=== PATIENT | male | born 1985 | race Caucasian/White ===

== ENCOUNTER 2025-03-13 04:29 | Observation (INO) | payer MEDICAID, SELFPAY ==
[2025-03-13] VITALS (10 sets, daily range): BP systolic 103–143; BP diastolic 76–98; PULSE 90–107; RESP 15–19; TEMP 36.3–37.2; O2SAT 95–100; BMI 28.1; BMI 29.5
--- NOTE | 2025-03-13 04:43 | XR_ITS ---
Examination: CT brain head without contrast. 2-D sagittal coronal reconstructions Date and time of exam:March 13, 2025 0604 hours INDICATIONS: Altered mental status today CTDI: vol (mGy):54 DLP: (mGycm):1084 Technique: Multiple CT axial sections of the brain have been obtained, 5 mm slice thickness. Contrast has not been administered. 2-D sagittal, coronal reconstructions have been obtained Low dose protocols were performed. One or more of the following dose reduction techniques were used; automated exposure control, adjustment of the mA and/or KV according to patient size, use of iterative reconstruction technique. Findings: No significant ventricular enlargement. Intra-axial or extra-axial hemorrhage density is not seen. No mass effect or midline shift Basal cisterns are not remarkable. Fourth ventricle is midline. Cranial vault intact. Impression: Negative for acute hemorrhage, mass effect or midline shift Advise clinical correlation and follow up accordingly
--- NOTE | 2025-03-13 04:43 | XR_ITS ---
Examination: AP chest single view TECHNIQUE: AP portable semiupright chest single view Date and time: March 13, 2025 0459 hours INDICATIONS: Shortness of breath weakness today FINDINGS: Normal heart size Lungs are clear. The osseous structures are intact IMPRESSION: No active disease
--- NOTE | 2025-03-13 04:52 | EDNOTE_ITS ---
Nausea/Vomit./Diarrhea-RME/HPI General Chief complaint: Nausea/Vomiting/Diarrhea Stated complaint: ATE MUSHROOMS Time Seen by Provider: 03/13/25 04:43 Arrival date/time: 03/13/25 04:29 Limitations: no limitations RME / HPI RME / HPI Narrative: DR. FLORIN FISCHER ED EVALUATION: 39 y/o homeless male presents to ED c/o abdominal cramping, nausea, vomiting, and diarrhea s/p eating an unknown [place] 12 [place]. Patient believed the mushroom was edible. He is unsure if he vomited the entire mushroom out. He reports feeling drowsy and experiencing visual hallucinations. he attempted to sleep it off, but was unsuccessful. Denies chest pain, shortness of breath, fever, and dysuria. Also denies any medical history, including alcohol and recreational drug use, but does admit to smoking tobacco. No other concerns or complaints expressed at this time Related Data Previous Rx's ?Medication ?Instructions ?Recorded Hydrocodone/Acetaminophen * (NORCO 1 - 2 tab PO Q4H VA N PAIN #15 tabs 02/01/17 5/325 *) Allergies Allergy/AdvReac Type Severity Reaction Status Date / Time NKA* Allergy Uncoded 03/13/25 04:51 Review of Systems Review of Systems Systems Reviewed: All systems reviewed, normal except as documented Past Medical History Social History SMOKING STATUS: Current every day smoker HOUSING: Homeless ED Exam Narrative Physical exam: GEN. APPEARANCE: The patient is alert awake oriented X-3 in no distress, lying down comfortably, does not look ill/toxic. Patient has poor eye contact. Patient is cooperative. VITALS: All vitals were reviewed and the pulse ox is % on room air which is normal according to my interpretation. HEENT: Normocephalic, atraumatic. Pupils are equal and reactive. Oral mucosa is moist. Patent Nares NECK: Supple, nontender, no thyromegaly, no meningismus, no JVD CHEST: Symmetrical, atraumatic, and with equal expansion , Nontender on palpation no deformity and no crepitus. CARDIOVASCULAR: Heart regular rhythm no murmur or gallop rub or extra beats. LUNGS: Clear to auscultation bilaterally with symmetrical chest rise. No laboring tachypnea or wheezing. No intercostal subcostal retraction. No rales and no rhonchi. ABDOMEN: Soft, flat, nontender to palpation, no guarding or rebound tenderness. There are no abnormal masses palpated. Active and normal bowel sounds. EXTREMITIES: Nontender. No edema. No cyanosis. Patient is able to move all 4 extremities well, with full ROM and good CSM. SKIN: Warm and dry, no jaundice or rashes noted. NEURO: Patient is ALEXIS x 4, Cranial nerves II through XII grossly intact. There is no focal neurologic deficits noted. GCS is 15, PNS and INTEGRITY ASSESSOR appear grossly intact. PSYCHIATRIC: Guarded General Limitations: Present no limitations Course Course Course Narrative: CXR is ordered for determining the etiology of shortness of breath. Quality Measures none Orders Category Date Time Status Insert IV NOW Care 03/13/25 04:[address] head/brain wo con Stat Exams 03/13/25 04:43 Taken CXR [XR chest 1V] Stat Exams 03/13/25 04:43 Taken Acetaminophen Stat Lab 03/13/25 05:26 Completed Ammonia Stat Lab 03/13/25 05:26 Completed CBC Stat Lab 03/13/25 05:26 Completed CMP [Comprehensive Metabolic Panel] Stat Lab 03/13/25 05:26 Completed INR [Prothrombin Time with INR] Stat Lab 03/13/25 05:26 Completed Salicylate Stat Lab 03/13/25 05:26 Completed T4 (Thyroxine) Stat Lab 03/13/25 05:26 Completed Thyroid Stimulating Hormone Stat Lab 03/13/25 05:26 Completed UA, C/S IF [Urinalysis, C/S if Indicated] Stat Lab 03/13/25 04:43 Ordered Vital Signs Vital signs: Vital Signs Temperature 97.3 F 03/13/25 04:33 Pulse Rate 99 03/13/25 04:33 Respiratory Rate 18 03/13/25 04:33 Blood Pressure 113/81 03/13/25 04:33 Pulse Oximetry (%) 99 03/13/25 04:33 Oxygen Delivery Method Room Air 03/13/25 04:33 Nausea/Vomiting/Diarrhea MDM Narrative MDM Narrative:: Scribe Attestation: Sissy Taylor, am scribing for and in the presence of Dr. Merrill. Provider Notation: Although this document has been carefully reviewed, there may still be some phonetic and other typographical errors.? These errors are purely grammatical due to imperfections in the software program and should not be construed in any way to? compromise the substance of the patient's medical care during this visit. Pending CT, CXR, and labs. Patient signed-out to Dr. Johnson at 6 AM. Patient data External records reviewed:: [facility] previous records (No prior ED recrds available for review.) and EMS form Clinical information provided by:: patient and EMS Social determinants that could affect healthcare access:: housing (Homeless) Patient has the following chronic illnesses:: None reported How is presenting disease/condition affected by chronic disease/condition?: no chronic disease Evaluation data The following diagnostics were reviewed and interpreted by me:: lab results and radiology exam(s) Lab and/or radiology exams considered but not ordered:: None Interpretation Summary: Pending CT, CXR, and Labs. Medications / Prescriptions Medications / Prescriptions considered but not ordered:: None Medication administrations:: See above if any. Consultations Consultation(s) initiated? (list below): No Diagnosis Nausea Differential Diagnosis: food poisoning, gastroenteritis, drug-induced nausea and vomiting, dehydration and other (Mushroom poisoning) Most likely diagnosis given after review of the tests above:: Ingestion of unknown substance Admission Indicated Admission indicated?: not indicated Explain why admission is indicated or not indicated:: Pending labs and official radiology report. Admission Request Was there a request for admission?: No Disposition Plan Disposition Plan: other (specify) (Patient signed-out to Dr. Johnson at 6 AM.) Discharge Plan Prescriptions/Referrals Prescriptions/Med Rec: No Action Hydrocodone/Acetaminophen * (NORCO 5/325 *) 1 TAB tablet 1 - 2 tab PO Q4H PRN (Reason: PAIN) Qty: 15 0RF Rx Instructions: FOR PAIN Referrals: No Primary/Family,Physician [Primary Care Provider] - In 1 week Problem List Clinical Impression: Acute confusion Patient/Caregiver Discharge Instructions Print Language: Serbian
[2025-03-13 05:35] LABS: Basophils # (Auto) 0.1 Thou/mm3 (0.0-0.2); Basophils % (Auto) 0 % (0-2.5); Eosinophils # (Auto) 0.1 Thou/mm3 (0.0-0.5); Eosinophils % (Auto) 1 % (0-10); Hematocrit 47.4 % (41.0-53.0); Hemoglobin 15.9 g/dL (13.5-16.0); Immature Granulocytes % (Auto) 1 % (0-0); Immature Granulocytes Auto 0.09 Thou/mm3 (0.00-0.00); Lymphocytes # (Auto) 0.3 Thou/mm3 (1.0-4.8); Lymphocytes % (Auto) 2 % (10-50); Mean Corpuscular HGB Conc 33.5 g/dl (31.0-37.0); Mean Corpuscular Volume 84 fL (80-100); Monocytes # (Auto) 0.5 Thou/mm3 (0.0-0.8); Monocytes % (Auto) 4 % (0-12); Neutrophils # (Auto) 12.1 Thou/mm3 (1.8-7.7); Neutrophils % (Auto) 92 % (37-80); Nucleated Red Blood Cell % 0 /100 WBC (0); Platelet Count 231 Thou/mm3 (140-440); Red Blood Count 5.68 Miln/mm3 (4.50-5.90); White Blood Count 13.1 Thou/mm3 (3.8-10.6)
[2025-03-13 05:48] LABS: Prothrombin Time 10.6 Seconds (9.0-12.2)
[2025-03-13 05:58] LABS: Ammonia 46 uMol/L (11-32)
[2025-03-13 06:07] LABS: Acetaminophen < 2.0 mcg/mL (10.0-20.0); Alanine Aminotransferase 68 U/L (10-49); Albumin, Serum 4.5 gm/dL (3.5-5.0); Albumin/Globulin Ratio 1.5 (1.2-2.2); Alkaline Phosphatase 69 U/L (46-116); Anion Gap 11 (7-16); Aspartate Amino Transferase 139 U/L (0-34); BUN/Creatinine Ratio 12 Ratio (12-20); Bilirubin,Total 0.5 mg/dL (0.3-1.2); Blood Urea Nitrogen 14 mg/dL (9-23); Carbon Dioxide 24.7 mMol/L (20.0-31.0); Chloride 107 mMol/L (98-107); Creatinine (Component) 1.2 mg/dL (0.6-1.3); Estimated Creatinine Clearance 82.9 mL/min (>60); Glucose 117 mg/dL (74-106); Osmolality,Calculated 286 (275-295); Potassium 4.1 mMol/L (3.4-5.1); Salicylate < 3.0 mg/dL; Sodium 143 mMol/L (136-145); Thyroid Stimulating Hormone 2.96 uIU/mL (0.55-4.78); Total Protein 7.5 gm/dL (5.7-8.2); eGFR > 60 See Note
[2025-03-13 06:20] LABS: T4 (Thyroxine) 5.5 mcg/dL (4.5-10.9)
--- NOTE | 2025-03-13 06:46 | EDNOTE_ITS ---
Emergency Room Addendum <Arlette Nance - Last Filed: 03/13/25 17:31> Addendum Narrative: 0600: Care assumed from Dr. Merrill, the previous shift emergency physician. Past medical, surgical, social and family history reviewed. Vitals and home medications reviewed. I will assume the care of the patient at this time, pending remainder of diagnostic tests and final disposition. Please refer to the emergency department record for history and examination from initial visit.? Physical exam by me shows patient under no acute distress at this time. At 0700 hrs. he has been sleeping all morning. Patient was signed out 0600 hrs. as someone who ate a mushroom who is homeless had some nausea and diarrhea. Evidently he refused to give a urine earlier this morning. His heart rate is 113 on the monitor. We do need to get a urine drug screen. Will hydrate him give him some oral fluids and advance diet as tolerated and reevaluate. Note he does have some very mild transaminase elevations of uncertain significance at this point it is unlikely he is ingested amanita as he has eaten these mushrooms before. <Tin Johnson MD - Last Filed: 03/13/25 17:42> Addendum Narrative: 0600: Care assumed from Dr. Merrill, the previous shift emergency physician. Past medical, surgical, social and family history reviewed. Vitals and home medications reviewed. I will assume the care of the patient at this time, pending remainder of diagnostic tests and final disposition. Please refer to the emergency department record for history and examination from initial visit.? Physical exam by me shows patient under no acute distress at this time. At 0700 hrs. he has been sleeping all morning. Patient was signed out 0600 hrs. as someone who ate a mushroom who is homeless had some nausea and diarrhea. Evidently he refused to give a urine earlier this morning. His heart rate is 113 on the monitor. We do need to get a urine drug screen. Will hydrate him give him some oral fluids and advance diet as tolerated and reevaluate. Note he does have some very mild transaminase elevations of uncertain significance at this point it is unlikely he is ingested amanita as he has eaten these mushrooms before. Patient had a second lactic acid is still elevated after the second round of hydration. He still did not give us a urine. 2 more liters of fluid were then given urine came back positive for methamphetamine. Other labs are unremarkable at 1500 hrs. he still is tacky between 100 115 range sinus on the he is drinking fluids on any vomiting. And a fourth lactic acid is being drawn. It came back at 3.8 and this is after 6 L of fluid. Patient had a persistent sinus tach elevated lactic acid for uncertain etiology and no response despite 6 L of fluid and probably produced a hyperchloremic acidosis or he has another source. Discussed this with the residents and we agreed to give 1 dose of antibiotics to cover for occult sepsis. Barlow scanning with CT of the chest abdomen pelvis to look for any source. At 1800 hrs. this patient's care goes to Dr. Mckinney to follow-up on the CT scan reports and reengage the resident/hospitalist team for admission if his lactic acids and his mental status still remain abnormal. Note I have reevaluated patient multiple times reevaluated him several times with repeat physical exams and documented my physical exam below What appear to be a simple sinus become a very complex multiple stage workup with multiple boluses of fluids with follow-up lactic acids which have not normalized despite what appears to be more than adequate fluid. Concern is his got some other process going on that is unclear. Again care to Dr. Mckinney at 1800 hrs. Physical Exam: General: The vital signs were reviewed. Unkempt patient is tachycardic goofy flat affect soft-spoken voice sometimes hard understand appears confused the patient is non-toxic, in no apparent distress and appears healthy with a patent airway, no respiratory distress and has no apparent circulatory problems. Head & Scalp: Normocephalic, atraumatic. Face: Appears normal and is without lesions, deformity. Ears: Left external pinna appears normal. Right external pinna appears normal. Eyes: The sclera is anicteric. No obvious photophobia. The Left and Right Orbit/Lid/Conjunctiva appears normal without swelling, discoloration or injection. Nose: The nose is without deformity, discharge or tenderness; Throat: Appears normal. The mucous membranes are pink and moist without exudates, redness or mass seen. The tongue appears normal. Neck: The neck is supple and no apparent mass or adenopathy. Chest: The chest wall is normal in size and symmetry and has no chest wall tenderness or crepitus. The patient displays normal ventilator effort without retractions, accessory muscle use and has adequate air movement bilaterally with no wheezes and no rales. Cardiovascular: Regular rate and rhythm; No murmurs, rubs, or gallops; Gastrointestinal: The abdomen appears normal. No obvious hernias or mass. The abdomen is soft and benign, non-distended, with no pain, no guarding and no rebound tenderness. Bowel sounds are present and normal sounding. No CVA tenderness. Genitourinary: Back/Spine: Normal inspection Extremities/Musculoskeletal/lymphatic: The bilateral upper and lower extremities are warm. There is no evidence of arterial insufficiency. There is no evidence of venous insufficiency/edema. The patient spontaneously moves bilateral upper and lower extremities with no pain and no limitation of movement. There is no apparent, injury or trauma. Skin: The skin is warm, dry and intact. No rashes. No petechia. No purpura. No abnormal bruising. The color is appropriate with no cyanosis. Mental status/Psychiatric: Mental status is flat affect no obvious hallucinations delusions no suicidal or homicidal ideation. Neurological: The patient is awake, alert, i not very engaging but does answer questions and is cooperative and is oriented to name and some to situation. The patient follows commands and answers historical question with no impairme nt. There is no visual disturbance apparent. The pupils are equal and reactive bilaterally with normal eye movements and no diplopia The bilateral upper and lower extremities have normal strength, normal range of motion and normal functioning. The gait, station and balance were not tested due to acuity Results <Arlette Nance - Last Filed: 03/13/25 17:31> Objective Laboratory: Laboratory Last Values WBC 13.1 Thou/mm3 (3.8-10.6) H 03/13/25 05:26 RBC 5.68 Miln/mm3 (4.50-5.90) 03/13/25 05:26 Hgb 15.9 g/dL (13.5-16.0) 03/13/25 05: Hct 47.4 % (41.0-53.0) 03/13/25 05: MCV 84 fL (80-100) 03/13/25 05:26 MCH 28.0 pg (25.0-35.0) 03/13/25 05: MCHC 33.5 g/dl (31.0-37.0) 03/13/25 05: RDW Std Deviation 40.0 fL (35.1-43.9) 03/13/25 05:26 Plt Count 231 Thou/mm3 (140-440) 03/13/25 05:26 Neut % (Auto) 92 % (37-80) H 03/13/25 05:26 Lymph % (Auto) 2 % (10-50) L 03/13/25 05:26 Ashe % (Auto) 4 % (0-12) 03/13/25 05:26 Eos % (Auto) 1 % (0-10) 03/13/25 05:26 Baso % (Auto) 0 % (0-2.5) 03/13/25 05:26 Neut # (Auto) 12.1 Thou/mm3 (1.8-7.7) H 03/13/25 05:26 Lymph # (Auto) 0.3 Thou/mm3 (1.0-4.8) L 03/13/25 05:26 Ashe # (Auto) 0.5 Thou/mm3 (0.0-0.8) 03/13/25 05:26 Eos # (Auto) 0.1 Thou/mm3 (0.0-0.5) 03/13/25 05:26 Baso # (Auto) 0.1 Thou/mm3 (0.0-0.2) 03/13/25 05:26 Immature Gran # (Auto) 0.09 Thou/mm3 (0.00-0.00) H 03/13/25 05:26 Absolute Nucleated RBC 0.00 Thou/mm3 (0.00-0.00) 03/13/25 05:26 Immature Gran % 1 % (0-0) H 03/13/25 05:26 Nucleated RBC % 0 /100 WBC (0) 03/13/25 05:26 PT 10.6 Seconds (9.0-12.2) 03/13/25 05:26 INR 1.0 (0.9-1.3) 03/13/25 05:26 Sodium 143 mMol/L (136-145) 03/13/25 05:26 Potassium 4.1 mMol/L (3.4-5.1) 03/13/25 05:26 Chloride 107 mMol/L (98-107) 03/13/25 05:26 Carbon Dioxide 24.7 mMol/L (20.0-31.0) 03/13/25 05:26 Anion Gap 11 (7-16) 03/13/25 05:26 BUN 14 mg/dL (9-23) 03/13/25 05:26 Creatinine 1.2 mg/dL (0.6-1.3) 03/13/25 05:26 Estim Creat Clear Calc 82.9 mL/min (>60) 03/13/25 05:26 eGFR > 60 See Note (60-) 03/13/25 05:26 BUN/Creatinine Ratio 12 Ratio (12-20) 03/13/25 05:26 Glucose 117 mg/dL (74-106) H 03/13/25 05:26 Calculated Osmolality 286 (275-295) 03/13/25 05:26 Calcium 9.0 mg/dL (8.3-10.6) 03/13/25 05:26 Corrected Calcium 9.0 mg/dL (8.5-10.1) 03/13/25 05:26 Total Bilirubin 0.5 mg/dL (0.3-1.2) 03/13/25 05:26 AST 139 U/L (0-34) H 03/13/25 05:26 ALT 68 U/L (10-49) H 03/13/25 05:26 Alkaline Phosphatase 69 U/L (46-116) 03/13/25 05:26 Ammonia 46 uMol/L (11-32) H 03/13/25 05:26 Total Protein 7.5 gm/dL (5.7-8.2) 03/13/25 05:26 Albumin 4.5 gm/dL (3.5-5.0) 03/13/25 05:26 Globulin 3.0 gm/dL (2.3-3.5) 03/13/25 05:26 Albumin/Globulin Ratio 1.5 (1.2-2.2) 03/13/25 05:26 TSH 2.96 uIU/mL (0.55-4.78) 03/13/25 05:26 Thyroxine (T4) 5.5 mcg/dL (4.5-10.9) 03/13/25 05:26 Salicylates < 3.0 mg/dL 03/13/25 05:26 Acetaminophen < 2.0 mcg/mL (10.0-20.0) L 03/13/25 05:26 Imaging: Procedure(s): CT head/brain wo con Accession Number(s): [id number] cc: Junaid Vivar MD; NO PRIMARY/FAMILY,PHYSICIAN; Daniella Merrill MD~ Examination: CT brain head without contrast. 2-D sagittal coronal reconstructions Date and time of exam:March 13, 2025 0604 hours INDICATIONS: Altered mental status today CTDI: vol (mGy):54 DLP: (mGycm):1084 Technique: Multiple CT axial sections of the brain have been obtained, 5 mm slice thickness. Contrast has not been administered. 2-D sagittal, coronal reconstructions have been obtained Low dose protocols were performed. One or more of the following dose reduction techniques were used; automated exposure control, adjustment of the mA and/or KV according to patient size, use of iterative reconstruction technique. Findings: No significant ventricular enlargement. Intra-axial or extra-axial hemorrhage density is not seen. No mass effect or midline shift Basal cisterns are not remarkable. Fourth ventricle is midline. Cranial vault intact. Impression: Negative for acute hemorrhage, mass effect or midline shift Advise clinical correlation and follow up accordingly Dictated By: Junaid Vivar MD Procedure(s): XR chest 1V Accession Number(s): [id number] cc: Junaid Vivar MD; NO PRIMARY/FAMILY,PHYSICIAN; Daniella Merrill MD~ Examination: AP chest single view TECHNIQUE: AP portable semiupright chest single view Date and time: March 13, 2025 0459 hours INDICATIONS: Shortness of breath weakness today FINDINGS: Normal heart size Lungs are clear. The osseous structures are intact IMPRESSION: No active disease Dictated By: Junaid Vivar MD <Tin Johnson MD - Last Filed: 03/13/25 17:42> Objective Laboratory: Laboratory Last Values WBC 13.1 Thou/mm3 (3.8-10.6) H 03/13/25 05:26 RBC 5.68 Miln/mm3 (4.50-5.90) 03/13/25 05:26 Hgb 15.9 g/dL (13.5-16.0) 03/13/25 05:26 Hct 47.4 % (41.0-53.0) 03/13/25 05:26 MCV 84 fL (80-100) 03/13/25 05:26 MCH 28.0 pg (25.0-35.0) 03/13/25 05:26 MCHC 33.5 g/dl (31.0-37.0) 03/13/25 05:26 RDW Std Deviation 40.0 fL (35.1-43.9) 03/13/25 05:26 Plt Count 231 Thou/mm3 (140-440) 03/13/25 05:26 Neut % (Auto) 92 % (37-80) H 03/13/25 05:26 Lymph % (Auto) 2 % (10-50) L 03/13/25 05:26 Ashe % (Auto) 4 % (0-12) 03/13/25 05:26 Eos % (Auto) 1 % (0-10) 03/13/25 05:26 Baso % (Auto) 0 % (0-2.5) 03/13/25 05:26 Neut # (Auto) 12.1 Thou/mm3 (1.8-7.7) H 03/13/25 05:26 Lymph # (Auto) 0.3 Thou/mm3 (1.0-4.8) L 03/13/25 05:26 Ashe # (Auto) 0.5 Thou/mm3 (0.0-0.8) 03/13/25 05:26 Eos # (Auto) 0.1 Thou/mm3 (0.0-0.5) 03/13/25 05:26 Baso # (Auto) 0.1 Thou/mm3 (0.0-0.2) 03/13/25 05:26 Immature Gran # (Auto) 0.09 Thou/mm3 (0.00-0.00) H 03/13/25 05:26 Absolute Nucleated RBC 0.00 Thou/mm3 (0.00-0.00) 03/13/25 05:26 Immature Gran % 1 % (0-0) H 03/13/25 05:26 Nucleated RBC % 0 /100 WBC (0) 03/13/25 05:26 PT 10.6 Seconds (9.0-12.2) 03/13/25 05:26 INR 1.0 (0.9-1.3) 03/13/25 05:26 Sodium 143 mMol/L (136-145) 03/13/25 05:26 Potassium 4.1 mMol/L (3.4-5.1) 03/13/25 05:26 Chloride 107 mMol/L (98-107) 03/13/25 05:26 Carbon Dioxide 24.7 mMol/L (20.0-31.0) 03/13/25 05:26 Anion Gap 11 (7-16) 03/13/25 05:26 BUN 14 mg/dL (9-23) 03/13/25 05:26 Creatinine 1.2 mg/dL (0.6-1.3) 03/13/25 05:26 Estim Creat Clear Calc 82.9 mL/min (>60) 03/13/25 05:26 eGFR > 60 See Note (60-) 03/13/25 05:26 BUN/Creatinine Ratio 12 Ratio (12-20) 03/13/25 05:26 Glucose 117 mg/dL (74-106) H 03/13/25 05:26 Calculated Osmolality 286 (275-295) 03/13/25 05:26 Calcium 9.0 mg/dL (8.3-10.6) 03/13/25 05:26 Corrected Calcium 9.0 mg/dL (8.5-10.1) 03/13/25 05:26 Total Bilirubin 0.5 mg/dL (0.3-1.2) 03/13/25 05:26 AST 139 U/L (0-34) H 03/13/25 05:26 ALT 68 U/L (10-49) H 03/13/25 05:26 Alkaline Phosphatase 69 U/L (46-116) 03/13/25 05:26 Ammonia 46 uMol/L (11-32) H 03/13/25 05:26 Total Protein 7.5 gm/dL (5.7-8.2) 03/13/25 05:26 Albumin 4.5 gm/dL (3.5-5.0) 03/13/25 05:26 Globulin 3.0 gm/dL (2.3-3.5) 03/13/25 05:26 Albumin/Globulin Ratio 1.5 (1.2-2.2) 03/13/25 05:26 TSH 2.96 uIU/mL (0.55-4.78) 03/13/25 05:26 Thyroxine (T4) 5.5 mcg/dL (4.5-10.9) 03/13/25 05:26 Salicylates < 3.0 mg/dL 03/13/25 05:26 Acetaminophen < 2.0 mcg/mL (10.0-20.0) L 03/13/25 05:26
[2025-03-13] MEDS: SODIUM CHLORIDE 0.9% 1000 ML 1,000 ML 999 ML IV ×2 (07:22→12:59)
--- NOTE | 2025-03-13 07:43 | PC.NURSE ---
PATIENT DENIES ANY COMPLAINTS AT TIME OF ASSESSMENT, FLUIDS STARTED, PATIENT MADE AWARE OF NEED FOR URINE. PATIENT WILL BE OFFERED FOOD AND DRINK PER DR. REQUEST. CALL LIGHT WITHIN REACH
[2025-03-13 08:15] LABS: Lactate (Lactic Acid) 4.2 mMol/L (0.4-2.0)
[2025-03-13 09:19] LABS: Collection Type, Urine Catheter; Squamous Epithelial Cell,Urine 0 /hpf (0-5)
[2025-03-13 09:36] LABS: Bilirubin,Urine Negative (Negative); Blood,Urine Trace (Negative); Clarity,Urine Clear (Clear/Hazy); Color,Urine Yellow (Lt Yel-Yel); Culture Indicated,Urine Not Indicated; Glucose, Urine Negative (Negative); Hyaline Casts,Urine 1 /hpf (0-1); Ketones,Urine Negative (Negative); Leukocyte Esterase,Urine Negative (Negative); Nitrite,Urine Negative (Negative); PH,Urine 5.5 (5.0-7.0); Protein,Urine 1+ (Neg - Trace); RBC,Urine 3 /hpf (0-3); Specific Gravity,Urine 1.025 (1.001-1.035); Urobilinogen,Urine Negative mg/dL (0.0-1.0); WBC,Urine 2 /hpf (0-5)
[2025-03-13] MEDS: SODIUM CHLORIDE 0.9% 2000 ML IV (10:19)
[2025-03-13 10:46] LABS: Reflex Lactate? Y
--- NOTE | 2025-03-13 13:18 | PC.NURSE ---
PATIENT SLEEPING WITH NO COMPLAINTS, ABLE TO WAKE PATIENT UP. PATIENT ABLE TO EAT JELLO AND DRANK JUICE WITH NO ISSUES.
[2025-03-13 13:41] LABS: Amphetamine/Methamp Scrn,U Positive (Negative); Barbiturate Screen,Urine Negative (Negative); Benzodiazepines Screen,Urine Negative (Negative); Benzoylecgonine Screen, Ur Negative (Negative); Fentanyl Screen,Urine Negative (Negative); Opiate Screen,Urine Negative (Negative); THC Screen,Urine Negative (Negative)
[2025-03-13 13:46] LABS: Partial Thromboplastin Time 26.8 Seconds (22.0-36.0); Prothrombin Time 10.8 Seconds (9.0-12.2)
[2025-03-13 13:48] LABS: Ammonia 33 uMol/L (11-32)
[2025-03-13] MEDS: SODIUM CHLORIDE 0.9% 1000 ML 2,000 ML 999 ML IV (15:32)
[2025-03-13 16:28] LABS: Lactate (Lactic Acid) 3.8 mMol/L (0.4-2.0)
--- NOTE | 2025-03-13 16:48 | XR_ITS ---
Examination: CT chest with intravenous contrast CT abdomen with intravenous contrast CT pelvis with intravenous contrast 2-D coronal and sagittal reconstructions Time of exam: March 13, 2025 1718 hours INDICATIONS: Chest pain nausea vomiting today CTDI: vol (mGy) : 9.78 DLP: (mGycm): 752 Technique: Multiple axial images of the chest, abdomen and pelvis with intravenous contrast, 3.0 mm slice thickness. Images obtained post intravenous injection Isovue 370 60 cc. 2-D sagittal and coronal reconstructions. Low dose protocols were performed. One or more of the following dose reduction techniques were used; automated exposure control, adjustment of the mA and/or KV according to patient size, use of iterative reconstruction technique. Findings: No thoracic aortic aneurysmal dilatation No pulmonary artery filling defects No paratracheal tracheobronchial or bronchopulmonary adenopathy No aspiration pneumonia No liver or splenic lesion No gallstones No pancreatic mass No renal or ureteral calculi, no hydronephrosis Mildly fluid distended small bowel loops in the abdomen and pelvis Partial visualization normal appendix. No diverticulitis Urinary bladder is intact Osseous structures intact with advanced disc narrowing L5-S1 Fat-containing inguinal hernias IMPRESSION: No mediastinal lymphadenopathy. No pneumonia or pulmonary edema Fluid distended small bowel loops in the abdomen and pelvis, consider ileus, enteritis, if early small bowel obstruction is a clinical consideration, recommend three-way abdominal series follow-up This examination was performed 5:19 PM and sent to synapse 7:13 PM
[2025-03-13 17:31] LABS: Alanine Aminotransferase 47 U/L (10-49); Albumin, Serum 3.2 gm/dL (3.5-5.0); Albumin/Globulin Ratio 1.5 (1.2-2.2); Alkaline Phosphatase 40 U/L (46-116); Anion Gap 8 (7-16); Aspartate Amino Transferase 78 U/L (0-34); BUN/Creatinine Ratio 10 Ratio (12-20); Bilirubin,Total 0.5 mg/dL (0.3-1.2); Blood Urea Nitrogen 9 mg/dL (9-23); Calcium 7.5 mg/dL (8.3-10.6); Calcium (Corrected) 8.1 mg/dL (8.5-10.1); Carbon Dioxide 19.6 mMol/L (20.0-31.0); Chloride 112 mMol/L (98-107); Creatinine (Component) 0.9 mg/dL (0.6-1.3); Estimated Creatinine Clearance 110.5 mL/min (>60); Globulin 2.2 gm/dL (2.3-3.5); Glucose 86 mg/dL (74-106); Osmolality,Calculated 277 (275-295); Potassium 4.4 mMol/L (3.4-5.1); Sodium 140 mMol/L (136-145); Total Protein 5.4 gm/dL (5.7-8.2); eGFR > 60 See Note
[2025-03-13] MEDS: PIPER/TAZO 3.375 GM PREMIX 3.375 GM/50 ML BAG IV (17:56)
--- NOTE | 2025-03-13 17:57 | EVENTNT_ITS ---
<Statement entered by Ajith Becerra MD - 03/17/25 08:57> I reviewed above note and agree with findings and plans. I have also personally examined the patient with medicine team and went over assessment and plan with medical team including paid internship and resident physician. Documentation for date of: 03/13/25 Event Note Event Note: 5:30 PM received call from emergency department regarding admission. Mr. James is a 39-year-old male with no significant past medical history, patient presented to [facility] emergency department with complaints of abdominal cramping, nausea, vomiting and diarrhea. Patient at bedside reported that he was at the park when he picked up a unknown white mushroom from the ground and ate it. Patient after that had an episode of soft stool x 1, followed by some vomiting. Patient reported feeling drowsy and experiencing hallucination. Patient currently has no current complaints, per nurse at bedside patient had x 1 episode of stool in the ED. Otherwise patient has been alert and oriented x 3, able to answer all questions. Patient's urine tox positive for amphetamine, mild transaminitis noted which improved with IV fluids, patient did have an elevated lactate of 4.2 which improved to 3.8 after 4 L of fluids and patient was given additional 2 L after. ED physician ordered repeat CMP which shows hyperchloremic acidosis. Case discussed with ED physician, requested to obtain CK as patient might have some underlying rhabdomyolysis secondary to meth use, during examination in the ED patient mildly hypertensive, vital stable. ED physician to obtain CT abdomen pelvis due to concern of lactic acidosis which is likely type B Lactate, ED physician reported that he will give vancomycin and Zosyn to the patient. Discussed with the ED if CK is elevated, can continue IV fluids and trend lactate, patient can be discharged from the ED. Patient has been in the ED for 24 hours and reports feeling fine. Will inform the late call team about the patient. Case discussed with Attending Dr. Becerra. Indira Long PGY1 Disclaimer: This note was dictated by speech recognition. Minor errors in chief mechanical engineer may be present due to voice recognition software.
--- NOTE | 2025-03-13 18:04 | PD.EDADDENDU ---
Emergency Room Addendum <Genet Acosta - Last Filed: 03/13/25 20:19> Addendum Narrative: I took over the care from Dr. Johnson at 6 PM on 03/13/2025, see his notes for complete H&P and ED course. I was asked to take over this patient pending CT chest abdomen pelvis. I reviewed all diagnostic test results. My review of the CT chest abdomen pelvis report is fluid distended small bowel loops in the abdomen and pelvis, consider ileus, enteritis. I discussed the case with our hospitalist. About the presentation and exam and diagnostics and treatments here. And need of further care in the hospital. Will accept the patient. <Vishnu Mckinney MD - Last Filed: 03/13/25 22:05> Addendum Narrative: I took over the care from Dr. Johnson at 6 PM on 03/13/2025, see his notes for complete H&P and ED course. I was asked to take over this patient pending CT chest abdomen pelvis. My review of the CT chest abdomen pelvis report is no acute findings. Diagnoses include AMS, rhabdomyolysis, elevated lactic acid, and positive UDS for methamphetamine. I discussed the case with our hospitalist. About the presentation and exam and diagnostics and treatments here. And need of further care in the hospital. Will accept the patient.
[2025-03-13 18:14] LABS: Creatine Kinase 2865 U/L (34-171)
[2025-03-13] MEDS: VANCOMYCIN/NS 1 GM IVPB 200 ML IV (18:29)
[2025-03-13 19:22] LABS: Reflex Lactate? Y
--- NOTE | 2025-03-13 19:25 | PC.NURSE ---
ASSUMED CARE OF PATIENT, PT ALERT AND ORIENTED AND IN NO ACUTE DISTRESS, WAITING FOR REPEAT LACTIC ACID AND RESULTS OF CT SCAN FOR POSSIBLE ADMIT. PT HAS NO COMPLAINTS AT THIS TIME, WILL CONTINUE WITH PLAN OF CARE
[2025-03-13 19:50] LABS: Lactic Acid, 3 HR 2.1 mMol/L (0.4-2.0)
--- NOTE | 2025-03-13 21:20 | PD.RESHP ---
Documentation for date of: 03/13/25 HPI History of Present Illness Chief complaint: Nausea, vomiting, diarrhea History of present illness: 39-year-old male with no significant past medical history, homelessness presented to ED on 03/13 with reported abdominal cramping, nausea and vomiting along with diarrhea. Patient states that earlier in the day he was at the park and consumed a white mushroom from the ground. Following ingestion, patient had an episode of solid stool and vomiting without any hematemesis. Patient felt drowsy and experienced dizziness at which point he presented to the ED. Patient denies having any fever/chills, sick contacts and denies having any concerning cardiac symptoms at this time. Medical history: As stated above Surgical history: Denies Allergies: NKDA Medications: None Family history: Noncontributory Social history: Patient has history of polysubstance use disorder with amphetamine, denies tobacco use, alcohol use. Patient is currently homeless ROS: All 12 systems assessed and the patient denies unless otherwise stated in HPI In the ED, patient presented normotensive, mildly tachycardic heart rate 99, respiratory 18, afebrile satting 99 on room air. Pertinent lab findings included WBC 13.1, anion gap of 8, lactic acid 2.1, corrected calcium of 8.1, AST 78, ALT 47, alk phos 140, ammonia 33, total CK of 2865, urinalysis negative for any signs of infection, U-Tox positive for amphetamines. Chest x-ray did show no active disease, head CT was negative and CT chest abdomen pelvis showed fluid distended small bowel loops in the abdomen likely secondary ileus. Patient will be admitted for observation for rhabdomyolysis and will be treated with IV fluids and close monitoring of electrolytes. Exam Vital Signs Temp Pulse Resp BP Pulse Ox O2 Del Method 98.2 F 90 17 115/86 H 100 Room Air 03/13/25 18:41 03/13/25 18:41 03/13/25 18:41 03/13/25 18:41 03/13/25 18:41 03/13/25 18:41 Narrative Exam Physical Exam: GENERAL: Awake, answering questions appropriately, appears stated age, disheveled HEENT: NC/AT. Moist mucosa. PERRLA/EOMI. poor dentition. Anicteric sclera CARDIO: Heart RRR, no obvious murmurs, no JVD. PULM: No coughing or visible SOB. Lungs CTA B/L. GI: Abdomen soft, NT/ND, +BS. SKIN/MSK/EXT: No wounds/discoloration/rashes/edema/amputations noted. +Pedal pulses present B/L. NEURO: Oriented x3, Moves extremities x4, no focal neurologic deficits noted Results: Labs 03/13/25 05:26 03/13/25 15:57 Labs: Short CBC 03/13/25 Range/Units 05:26 WBC 13.1 H (3.8-10.6) Thou/mm3 Hgb 15.9 (13.5-16.0) g/dL Hct 47.4 (41.0-53.0) % Plt Count 231 (140-440) Thou/mm3 BMP 03/13/25 03/13/25 05:26 15:57 Sodium 143 140 Potassium 4.1 4.4 Chloride 107 112 H Carbon Dioxide 24.7 19.6 L BUN 14 9 Creatinine 1.2 0.9 Glucose 117 H 86 Calcium 9.0 7.5 L D Cardiac Enzymes 03/13/25 03/13/25 Range/Units 13:15 15:57 Total Creatine Kinase 2865 H Cancelled (34-171) U/L Liver Function 03/13/25 03/13/25 Range/Units 05:26 15:57 Total Bilirubin 0.5 0.5 (0.3-1.2) mg/dL AST 139 H 78 H (0-34) U/L ALT 68 H 47 (10-49) U/L Alkaline Phosphatase 69 40 L D (46-116) U/L Albumin 4.5 3.2 L D (3.5-5.0) gm/dL Urine 03/13/25 Range/Units 08:20 Urine Color Yellow (Lt Yel-Yel) Urine Clarity Clear (Clear/Hazy) Urine pH 5.5 (5.0-7.0) Ur Specific [place] 1.025 (1.001-1.035) Urine Protein 1+ A (Neg - Trace) Urine Glucose (UA) Negative (Negative) Quality Measures Quality Measures none Medications Home Medications and Allergies Allergies Allergy/AdvReac Type Severity Reaction Status Date / Time No Known Allergies Allergy Unverified 03/13/25 17:36 Visit Medications Discontinued Medications Sodium Chloride (Ns) 1,000 mls @ 999 mls/hr IV .Q1H1M ONE Stop: 03/13/25 08:18 Last Infusion: 03/13/25 08:52 Dose: Infused Sodium Chloride (Ns) 1,630 mls @ 1,630 mls/hr 20 ml/kg infuse over 60 min (1630 ml) IV .Q1H ONE Stop: 03/13/25 11:05 Last Infusion: 03/13/25 12:04 Dose: Infused Sodium Chloride (Ns) 1,000 mls @ 999 mls/hr IV .Q1H1M ONE Stop: 03/13/25 13:48 Last Infusion: 03/13/25 14:10 Dose: Infused Sodium Chloride (Ns) 2,000 mls @ 999 mls/hr IV .Q2H1M ONE Stop: 03/13/25 17:19 Last Infusion: 03/13/25 17:49 Dose: Infused Vancomycin/Sodium Chloride (Vancomycin/Ns 1 Gm Ivpb) 200 mls @ 120 mls/hr IV X1 ONE Stop: 03/13/25 19:12 Last Infusion: 03/13/25 20:10 Dose: Infused Piperacillin/Tazobactam/Dextrose (Zosyn) 3.375 gm in 50 mls @ 100 mls/hr IV X1 ONE Stop: 03/13/25 18:02 Last Infusion: 03/13/25 18:24 Dose: Infused Assessment & Plan Plan 39-year-old male with no significant past medical history, homelessness presented to ED on 03/13 with reported abdominal cramping, nausea and vomiting along with diarrhea will be admitted for observation for rhabdomyolysis and will be treated with IV fluids and close monitoring of electrolytes. #Rhabdomyolysis #Electrolyte abnormalities Likely secondary to poor p.o. intake along with excessive nausea/diarrhea/vomiting, toxic ingestion, meth use disorder As stated above, patient is currently homeless and consumed a white mushroom and had some GI symptoms Patient's vitals and labs largely stable and there are no signs of kidney injury at this time CK elevated at 2865, EGFR greater than 60, creatinine 0.9 and BUN of 9 In the ED, patient initially given IV Vanco and Zosyn along with roughly 5.6 L of NS bolus as there was initial suspicion for sepsis as patient had WBC of 13.1 Plan: Continue 100 mL/h of NS Follow-up morning labs #Elevated liver enzymes #Hyperammonemia Likely related to polysubstance use disorder, alcohol use disorder, NAFLD Chest CT abdomen pelvis shows some ileus but no liver lesions noted Ammonia of 33, patient does not seem encephalopathic at this time Plan: Follow-up with morning labs Counseled on alcohol cessation, cessation of polysubstance use disorder Consider social sciences instructor referral #Possible ileus versus enteritis versus less likely early SBO Patient does not have abdominal tenderness, but did present with GI symptoms of nausea/vomiting/diarrhea On CT chest/abdomen/pelvis there was signs of air in the small bowel loops Plan: Bowel regimen started Monitor for any acute changes in symptoms #Amphetamine use disorder Patient is U-Tox positive for amphetamine Plan: Counseled on cessation Consider social service referral as above Health Maintenance: Lines: PIV Diet: Cardiac Bowel: Senna GI prophylaxis: Not needed DVT prophylaxis: Heparin subcu Dispo: IV fluids and electrolyte monitoring for rhabdomyolysis Code: Full Patient seen and assessed with attending Dr. China Bajwa DO PGY-1 Internal Medicine - GME Attending Provider Attestation/Addendum After examination of the patient and review of the clinical data I feel that this patient needs admission to the hospital for further treatment/evaluation. I have discussed and was present for the essential components of the history, physical examination, diagnosis, and treatment plan with the resident. I agree with the patient's care as documented by the resident and amended herein by me. Elroy Atkinson DO. Patient seen and evaluated in the ED in short, patient is a 39-year-old male with no reported past medical history, presented to the ED for nausea, vomiting and diarrhea along with abdominal pain. Patient did not appear to be the best historian however apparently earlier in the day he was in a local park and consumed a mushroom and became nauseous and vomited after that fact. The entire story is somewhat unclear, unknown if the patient was found down, does not appear to have any trauma, subsequently admitted under observation for rhabdomyolysis, methamphetamine intoxication and foreign substance intoxication. In the emergency department, vital signs stable, patient was afebrile and on room air. Significant labs included WBC of 13, chloride 112 and bicarb of 19. Lactic acid on arrival was initially 4.2 however has since down trended, presently 2.1. Ammonia level slightly elevated 33. Liver enzymes mildly elevated, urine toxicology positive for methamphetamines and CK was 2800. Urinalysis was negative. Patient did receive vancomycin and Zosyn in the ED as well as approximately [address] abdomen and pelvis was performed suggestive of ileus, CT head was negative and chest x-ray was also negative. We did consider discharging the patient from the ED but considering he was still very nauseous and vomiting, we decided to admit him under observation for the night and continue fluids, likely discharge tomorrow morning if the patient continues to improve, can consider repeating a CK in the morning if necessary, blood cultures were also drawn in the ED and are pending. Will continue to monitor closely overnight Although this document has been carefully reviewed, there may still be some phonetic and other typographical errors. These errors are purely grammatical due to imperfections in the software program and should not be construed in any way to compromise the substance of the patient's medical care during this visit.
[2025-03-13] MEDS: SODIUM CHLORIDE 0.9% 1000 ML 1,000 ML 50 ML IV (21:34)
[2025-03-13] MEDS: SODIUM CHLORIDE 0.9% 1000 ML 1,000 ML 100 ML IV (23:05)
--- NOTE | 2025-03-13 23:07 | PC.NURSE ---
REPORT GIVEN TO FLOOR FRANKO STRICKLAND
--- NOTE | 2025-03-13 23:19 | PC.NURSE ---
Report received, pt arrived to room 376 via wheelchair, alert/oriented states he feels better than earlier. Pt delines to take off shorts and strings tied on feet offered to provide pajama bottoms and socks, pt declined. Oriented to room call light placed within reach and nursing care began at this time.
[2025-03-14] VITALS: BP 114/81; PULSE 88; RESP 18; TEMP 36.5; O2SAT 96
[2025-03-14 04:00] VITALS: BP 114/81; PULSE 83; RESP 18; TEMP 36.6; O2SAT 96
[2025-03-14 05:53] LABS: Basophils % (Auto) 0 % (0-2.5); Eosinophils # (Auto) 0.1 Thou/mm3 (0.0-0.5); Eosinophils % (Auto) 1 % (0-10); Hematocrit 33.6 % (41.0-53.0); Hemoglobin 11.1 g/dL (13.5-16.0); Immature Granulocytes % (Auto) 1 % (0-0); Immature Granulocytes Auto 0.08 Thou/mm3 (0.00-0.00); Lymphocytes # (Auto) 2.3 Thou/mm3 (1.0-4.8); Lymphocytes % (Auto) 18 % (10-50); Mean Corpuscular Hemoglobin 27.6 pg (25.0-35.0); Mean Corpuscular Volume 84 fL (80-100); Monocytes % (Auto) 8 % (0-12); Neutrophils % (Auto) 72 % (37-80); Nucleated Red Blood Cell % 0 /100 WBC (0); Platelet Count 202 Thou/mm3 (140-440); RDW Standard Deviation 40.8 fL (35.1-43.9); Red Blood Count 4.02 Miln/mm3 (4.50-5.90); White Blood Count 12.5 Thou/mm3 (3.8-10.6)
[2025-03-14 06:19] LABS: Alanine Aminotransferase 41 U/L (10-49); Albumin, Serum 3.2 gm/dL (3.5-5.0); Albumin/Globulin Ratio 1.6 (1.2-2.2); Alkaline Phosphatase 38 U/L (46-116); Anion Gap 8 (7-16); Aspartate Amino Transferase 66 U/L (0-34); BUN/Creatinine Ratio 11 Ratio (12-20); Bilirubin,Total 0.5 mg/dL (0.3-1.2); Blood Urea Nitrogen 9 mg/dL (9-23); Calcium 7.3 mg/dL (8.3-10.6); Calcium (Corrected) 7.9 mg/dL (8.5-10.1); Carbon Dioxide 22.8 mMol/L (20.0-31.0); Chloride 110 mMol/L (98-107); Creatinine (Component) 0.8 mg/dL (0.6-1.3); Glucose 102 mg/dL (74-106); Magnesium 1.8 mg/dL (1.6-2.6); Osmolality,Calculated 279 (275-295); Potassium 3.7 mMol/L (3.4-5.1); Sodium 141 mMol/L (136-145); Total Protein 5.2 gm/dL (5.7-8.2); eGFR > 60 See Note
[2025-03-14 08:00] VITALS: BP 130/93; PULSE 89; RESP 17; TEMP 36.4; O2SAT 95
[2025-03-14] MEDS: HEPARIN SOD INJ 5000 UNIT/ML VIAL SC (08:57)
[2025-03-14] MEDS: SENNA TABLET 1 TAB PO (08:57)
[2025-03-14] MEDS: POLYETHYLENE GLYCOL 17 GM PACKET PO (08:57)
[2025-03-14 12:00] VITALS: BP 136/85; PULSE 80; RESP 18; TEMP 36.6; O2SAT 96
--- NOTE | 2025-03-14 12:18 | ESDS_ITS ---
<Statement entered by Ajith Becerra MD - 03/17/25 08:58> I reviewed above note and agree with findings and plans. I have also personally examined the patient with medicine team and went over assessment and plan with medical team including internal grinder and resident physician. Planned Discharge Date 03/14/25 DS: Providers Provider Date of admission: 03/13/25 21:24 Primary care physician: Physician No Primary/Family Admitting Provider: Tommy Atkinson DO Attending Provider on Admission: Tommy Atkinson DO Consults: 03/14/25 08:00 Health Equity Referral - Nutrition Routine Comment: Positive screening for nutrition needs. Health Equity Referral - Safety Routine Comment: Positive screening for safety needs. Health Equity Referral - Transportation Routine Comment: Positive screening for transportation needs. Health Equity Referral - Utilities Routine Comment: Positive screening for utility assistance needs. Attending Provider on DC: Ajith Becerra MD Discharging Provider: Ajith Becerra MD Anticipated date of discharge: 03/14/25 DS: Diagnosis Problem List Completed Was Problem List Reviewed/Reconciled?: Yes Hospital Course Hospital Course Hospital course: Hospital course: Mr. Santoro is a 39-year-old male with past medical history of methamphetamine use and homelessness who presented to [facility] emergency department on March 13, 2025 with a chief complaint of abdominal cramping, nausea and vomiting along with diarrhea. Patient reported that he was in the park earlier in the day when he consumed a white mushroom from the ground assuming that it is a psychedelic mushroom, following ingestion he had a episode of solid stool and vomiting and he was transported to the ED by ambulance. Per ED documentation patient was feeling drowsy and experienced visual hallucinations. Attempted to sleep it off but was unsuccessful. Patient was admitted to the hospital due to persistently elevated lactic acidosis and rhabdomyolysis despite aggressive IV hydration in the ED for observation. Patient was started on IV fluids, urine tox screen was positive for methamphe tamine, CT abdomen pelvis showed suspicion of ileus, patient reported having bowel movement earlier today. CBC/CMP in the morning unremarkable for any acute significant finding, further plan is to discharge patient home and follow-up with primary care physician in 1 week. Patient counseled to maintain adequate hydration, obtain anemia workup outpatient and advised to stop using methamphetamine. Patient is stable for discharge, responded well to hospital treatment. Discharge Diagnosis: #Suspected acute methamphetamine intoxication #Methamphetamine dependence #Rhabdomyolysis #Electrolyte normalities #Transaminitis #Hyperammonemia #Ileus versus enteritis, ruled out Case discussed with Attending Dr. Becerra. Indira Long PGY1 Disclaimer: This note was dictated by speech recognition. Minor errors in labor training manager may be present due to voice recognition software. Status at Discharge Functional status at discharge: independent ambulation Overall status at discharge: patient is progressing back to baseline Time Spent with Patient Time attestation: Total time spent providing and/or coordinating discharge services: Time spent: Greater than 30 minutes Exam Vital Signs Temp Pulse Resp BP Pulse Ox O2 Del Method 97.8 F 80 18 136/85 H 96 Room Air 03/14/25 12:00 03/14/25 12:00 03/14/25 12:00 03/14/25 12:00 03/14/25 12:00 03/14/25 12:00 Narrative Exam Physical Exam: GENERAL: Awake, answering questions appropriately, appears stated age, disheveled HEENT: NC/AT. Moist mucosa. PERRLA/EOMI. poor dentition. Anicteric sclera CARDIO: Heart RRR, no obvious murmurs, no JVD. PULM: No coughing or visible SOB. Lungs CTA B/L. GI: Abdomen soft, NT/ND, +BS. SKIN/MSK/EXT: No wounds/discoloration/rashes/edema/amputations noted. +Pedal pulses present B/L. NEURO: Oriented x3, Moves extremities x4, no focal neurologic deficits noted Discharge Plan Plan Patient Disposition: HOME (Self Care) Patient condition on transfer: Stable Care Plan Goals: Maintain adequate hydration, aim for 8 to 10 cups (64-80 Oz) of water daily-more if you are sweating or have diarrhea. Stop methamphetamine use, establish care outpatient with primary care provider. Outpatient Anemia Workup. If you do not have a PCP you can follow-up in [facility] in 1 to 2 weeks. Call [phone] to make an appointment Address: [facility], [address], [address], [place], [address] Return to ED if symptoms return or worsen. Prescriptions/Referrals Prescriptions/Med Rec: No Action No Known Home Medications Referrals: No Primary/Family,Physician [Primary Care Provider] - Indira Long MD [Resident] - Patient/Caregiver Discharge Instructions Discharge Activity: activity as tolerated Education Materials: Rhabdomyolysis, Understanding Methamphetamine ..., Dehydration, ED Drug Abuse Print Language: Greenlandic Stand Alone Forms: Sol Award Info., Patient Portal Info Letter, Work/Release Restrictions Discharge Order Discharge Orders: Discharge (Routine); Ordered 03/14/25 Ordered By: Indira Long Quality Discharge Quality Measures none
--- NOTE | 2025-03-14 13:40 | PC.NURSE ---
discharge pending SS to setup transportaion for pt.
--- NOTE | 2025-03-14 14:39 | PC.SS ---
PAYAL scheduled [employer] to return to his preferred location, [facility].
== END 2025-03-14 14:42 | disposition home or self-care (01) ==
LOC: SERX 21:14 → SERHOLD 21:39 → S3SX 03-14 09:18 → SERHOLD 03-16 08:50 → S3SX 03-16 08:52
PROVIDERS: Emergency Medicine; Admitting Provider Student in an Organized Health Care Education/Training Program; Emergency Provider Emergency Medicine; Visit Provider Student in an Organized Health Care Education/Training Program
DX: F15.20 Other stimulant dependence, uncomplicated (principal); M62.82 Rhabdomyolysis; E87.8 Other disorders of electrolyte and fluid balance, not elsewhere classified; E87.20 Acidosis, unspecified; E72.20 Disorder of urea cycle metabolism, unspecified; Z59.00 Homelessness unspecified
CPT/HCPCS: 36415; 70450; 71045; 71260; 74177; 80053; 80307; 80329; 81001; 82140; 82550; 83605; 83735; 84436; 84443; 85025; 85610; 85730; 87040; 96361; 96365; 96366; 96367; 96372; 99285; A4649; G0378; J1644; J2543; J3370; J7030; Q9967; A9270; G0480